=== PATIENT | male | born 1995 | race American Indian/Alaskan Native ===

== ENCOUNTER 2019-03-12 09:24 | Outpatient (CLI) | payer OTHER ==
--- NOTE | 2019-03-12 10:13 | XRay Report ---
LEFT HIP RADIOGRAPHS INDICATION: Asperger syndrome, autism, avascular necrosis of hip, hip fusion. Patient states 10 surgeries on left hip from [id number]. Left hip pain. COMPARISON: None similar at this institution. FINDINGS: AP pelvic and attempted frog-leg view of the left hip demonstrate multiple screws/hardware fusing the left hip joint. Adjacent heterotopic ossifications also noted. Intact remainder pelvic articulation and imaged lower lumbar spine. Right hemipelvic phleboliths. Nonobstructive bowel gas pattern. CONCLUSION: No acute radiographic abnormality with left hip fusion hardware noted, as described. Thank you for the opportunity to participate in this patient's care.
== END 2019-03-12 09:25 | disposition home or self-care (01) ==
LOC: XRAY 09:24
PROVIDERS: ATTEND Internal Medicine
DX: Z02.71 Encounter for disability determination (principal); M87.852 Other osteonecrosis, left femur